=== PATIENT | male | born 1955 | race Caucasian/White ===

== ENCOUNTER 2017-10-20 06:44 | Day surgery (SDC) | payer BC ==
[2017-10-20] MEDS ORDERED: LIDOCAINE 2% MDV (20MG/ML) 20ML VIAL IV ONE (06:45)
[2017-10-20] MEDS ORDERED: PROPOFOL 10 MG/ML VIAL IV ONE (06:45)
--- NOTE | 2017-10-24 07:10 | Operative Note ---
DATE OF SURGERY: 10/20/2017 REQUESTING PHYSICIAN: Jose A Jack MD SURGEON: Leola Flores MD POSTOPERATIVE DIAGNOSES: 1. A 6 mm ascending colon polyp that was removed by cold snare. 2. A 6 mm sessile polyp in the rectum that was also removed by cold snare. OPERATION: COLONOSCOPY and exam. REASON FOR PROCEDURE: This is a 62-year-old male who has had colonoscopy about 10 years ago who presented for subsequent screening. SEDATION: Sedation as per anesthesia. Pulse oximetry was monitored throughout the duration of the procedure to maintain O2 saturation of 90% or greater. Supplemental oxygen was administered via nasal cannula. Cardiac and vital signs were monitored throughout the duration of the procedure and they were stable. PROCEDURE: Description of the procedure of colonoscopy, risks, and alternatives to the procedure including the risk of bleeding and perforation among others were explained to the patient who voiced understanding and agreed to have the procedure done. A physical examination was performed and the patient was found stable for sedation. The patient was then placed in the left lateral position and sedation was initiated. Digital rectal exam was performed and showed small external hemorrhoids with no palpable rectal masses. A lubricated Olympus PCF-180AL colonoscope was then inserted into the rectum under direct visualization and was advanced to the cecum without difficulty. The ileocecal valve and appendiceal orifice were identified and photographed. The colonic mucosa was carefully examined upon insertion of the colonoscope. There were no lesions noted. The colonoscope was then withdrawn while carefully examining the colonic mucosal surfaces. In the ascending colon was a 6 mm sessile polyp that was noted and was removed by cold snare. The rest of ascending colon, transverse colon, descending colon, and sigmoid colon mucosa appeared normal. In the rectum was a 6 mm sessile polyp that was noted and was removed by cold snare. There were no other lesions noted. The colonoscope was then retroflexed and withdrawn and the procedure was terminated. The patient tolerated the procedure well without any complications. The patient remained with stable vital signs and was sent to the recovery room. PLAN AND RECOMMENDATIONS: 1. Will follow up on the biopsies. 2. The patient is to have repeat colonoscopy in 5 or 10 years depending on histology of the polyps. Thank you for allowing me to participate in the care of this patient. CC: MD ASHLEE Lopez
== END 2017-10-20 08:52 | disposition home or self-care (01) ==
LOC: HOP 06:44
PROVIDERS: ATTEND Internal Medicine Gastroenterology
DX: Z12.11 Encounter for screening for malignant neoplasm of colon (principal); D12.2 Benign neoplasm of ascending colon; K62.1 Rectal polyp; E78.00 Pure hypercholesterolemia, unspecified